=== PATIENT | male | born 1965 ===

== ENCOUNTER 2016-06-26 07:51 | Emergency (ER) | payer OTHER ==
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
--- NOTE | 2016-06-26 09:14 | ED ORDER SUMMARY ---
..... Patient: BILLY MOTT OrderSheet [facility] VisitID: [id number] [address] [place] [address] 50y, M Registration Date/Time: 06/26/2016 ORDER SHEET Weight: 120.2 kg (stated) Allergies: Ibuprofen, Penicillins GENERAL ORDERS: MEDICATION ORDERS: Flexeril PO 10 mg (NOW) (08:54 06/26/2016 [facility]) (9:11 ROLANDOanders R.N.) Prednisone PO 60 mg (NOW) (08:54 06/26/2016 [facility]) (9:11 JSanders R.N.) Zofran ODT PO 4 mg (NOW) (08:54 06/26/2016 [facility]) (9:12 [employer] Technologyanders R.N.) IV FLUIDS: ORDER SHEET NOTES: [Electronically signed by Sujata Alberts R.N. (10:04 06/26/2016)] [Electronically signed by Rashid Landeros DO (22:03 06/27/2016)] [Electronically locked/signed by Sujata Alberts R.N. (10:04 06/26/2016)]
--- NOTE | 2016-06-26 09:14 | ED CLINICAL REPORT ---
Clinical Report - Physicians/Mid Levels [facility] [address] [place] [address] 06/26/2016 7:52 Patient: BILLY MOTT Time Seen: 08:27. Arrived- By private vehicle. Historian- patient. HISTORY OF PRESENT ILLNESS Chief Complaint: BACK PAIN and CHRONIC BACK PAIN. It is described as being moderate in degree and in the area of the lower thoracic spine, left upper lumbar spine and right upper lumbar spine. The quality is noted to be "pain" and similar to prior episodes. No radiation. It is still present. It was gradual in onset and has been waxing/waning. Modifying factors- worsened by rotation of the body, bending over or lifting. Relieved by remaining still. No bladder dysfunction, bowel dysfunction, sensory loss or motor loss. Patient notes the possibility of an injury but denies injury to the head or neck. Mechanism of injury- he was lifting, turning and bending. Occurred at home. No other injury. Similar symptoms previously: Chronically. Recent medical care: The patient was seen recently in a clinic. Seen for similar symptoms. REVIEW OF SYSTEMS No fever, chills, difficulty with urination, urinary frequency or skin rash. No headache, sore throat, difficulty breathing, chest pain or abdominal pain. No nausea, vomiting, diarrhea, black stools or bloody stools. PAST HISTORY See nurses notes. PCP: [facility] ([place]) Problems: Chronic back pain secondary to disk disease Chronic neck pain Infectious Mononucleosis. Meniere's Syndrome. Tinnitus. Lifestyle / Substance Problems. Pancreatitis. Hypokalemia. Substance Abuse. Depression. "Muscular Dystrophy". Anxiety Reaction. Palpitations. Asthma. Migraine Headache. Hypertension. Surgeries: Carpal Tunnel Surgery. Fracture Repair. SOCIAL HISTORY Smoker- current status unknown. History of drug use: marijuana. No alcohol use. ADDITIONAL NOTES The nursing notes have been reviewed. PHYSICAL EXAM Vital Signs: 06/26/2016 08:22 BP: 137/110. HR: 112. RR: 18. O2 saturation: 95%. Temp: 98.2 F. Pain level now: 9/10. Appearance: Alert. Patient in mild distress. HEENT: Normal external inspection. Neck: Normal inspection. Neck nontender. Painless ROM. CVS: Heart sounds normal. Pulses normal. Respiratory: No respiratory distress. Breath sounds normal. Abdomen: No visible injury. Soft and nontender. No mass. Back: Moderate soft tissue tenderness in the right lower and left lower thoracic area and right upper and left upper lumbar area. No soft tissue tenderness in the central thoracic area. Skin: Skin warm and dry. Normal skin color. No rash. Normal skin turgor. Extremities: Extremities exhibit normal ROM. Extremities nontender. Neuro: Oriented X 3. Mood/affect normal. No motor deficit. No sensory deficit. Straight leg raising: negative on the right and negative on the left. Reflexes normal. Reflex exam: right patellar 1+ and left patellar 1+. LABS, X-RAYS, AND EKG Pulse Oximetry: 06/26/2016 08:22 O2 saturation: 95%. (FIO2 - room air). Interpretation: normal. PROGRESS AND PROCEDURES Course of Care: Prednisone 60 mg PO given. Zofran 4 mg ODT PO given. Flexeril 10 mg PO given. Patient is stable. Physical exam findings are improved. Symptoms better. No signs of cord compression. No clinical indication of spinal / epidural infectious process / discitis. There is nothing new or different about his back pain. Patient/family counseled. Old ED records reviewed. Patient has had multiple ED visits (He has had over 3 visits with narcotic management in past 12 mo). Disposition: Discharged. Condition: stable and improved. CLINICAL IMPRESSION Acute traumatic thoracic back pain associated with muscle strain. INSTRUCTIONS Apply ice. (Please see our Pain Care Policy). Warnings: SEDATIVE MEDICATION: You were given sedative medication during your visit. Do not drive or operate dangerous machinery. CONTROLLED SUBSTANCE WARNINGS. GENERAL WARNINGS: Return or contact your physician immediately if your condition worsens or changes unexpectedly, if not improving as expected, or if other problems arise. Your Current Medications: CONTINUE TAKING THE FOLLOWING MEDICATIONS: Gabapentin Oral : 800 mg 3x a day. Tums Oral : prn. Prescription Medications: Robaxin 750 mg: Take 2 orally every 6 hours as needed for muscle spasm. Dispense thirty (30). No refills. Substitution is permissible. OTC Medications: Acetaminophen (available over the counter): take according to label instructions. Follow-up with: [facility], , , [address], , [place], [id number] Follow up tomorrow. (Electronically signed by Rashid Landeros DO 06/27/2016 22:03)
--- NOTE | 2016-06-26 09:14 | ED ORDER SUMMARY ---
..... Patient: BILLY MOTT OrderSheet [facility] VisitID: [id number] [address] [place] [address] 50y, M Registration Date/Time: 06/26/2016 ORDER SHEET Weight: 120.2 kg (stated) Allergies: Ibuprofen, Penicillins GENERAL ORDERS: MEDICATION ORDERS: Flexeril PO 10 mg (NOW) (08:54 06/26/2016 [facility]) (9:11 ROLANDOanders R.N.) Prednisone PO 60 mg (NOW) (08:54 06/26/2016 [facility]) (9:11 JSanders R.N.) Zofran ODT PO 4 mg (NOW) (08:54 06/26/2016 [facility]) (9:12 Buzz Referralsanders R.N.) IV FLUIDS: ORDER SHEET NOTES: [Electronically signed by Sujata Alberts R.N. (10:04 06/26/2016)] [Electronically signed by Rashid Landeros DO (22:03 06/27/2016)] [Electronically locked/signed by Sujata Alberts R.N. (10:04 06/26/2016)]
--- NOTE | 2016-06-26 09:14 | ED CLINICAL REPORT ---
Clinical Report - Physicians/Mid Levels [facility] [address] [place] [place] [address] 06/26/2016 7:52 Patient: BILLY MOTT Time Seen: 08:27. Arrived- By private vehicle. Historian- patient. HISTORY OF PRESENT ILLNESS Chief Complaint: BACK PAIN and CHRONIC BACK PAIN. It is described as being moderate in degree and in the area of the lower thoracic spine, left upper lumbar spine and right upper lumbar spine. The quality is noted to be "pain" and similar to prior episodes. No radiation. It is still present. It was gradual in onset and has been waxing/waning. Modifying factors- worsened by rotation of the body, bending over or lifting. Relieved by remaining still. No bladder dysfunction, bowel dysfunction, sensory loss or motor loss. Patient notes the possibility of an injury but denies injury to the head or neck. Mechanism of injury- he was lifting, turning and bending. Occurred at home. No other injury. Similar symptoms previously: Chronically. Recent medical care: The patient was seen recently in a clinic. Seen for similar symptoms. REVIEW OF SYSTEMS No fever, chills, difficulty with urination, urinary frequency or skin rash. No headache, sore throat, difficulty breathing, chest pain or abdominal pain. No nausea, vomiting, diarrhea, black stools or bloody stools. PAST HISTORY See nurses notes. PCP: [facility] ([place]) Problems: Chronic back pain secondary to disk disease Chronic neck pain Infectious Mononucleosis. Meniere's Syndrome. Tinnitus. Lifestyle / Substance Problems. Pancreatitis. Hypokalemia. Substance Abuse. Depression. "Muscular Dystrophy". Anxiety Reaction. Palpitations. Asthma. Migraine Headache. Hypertension. Surgeries: Carpal Tunnel Surgery. Fracture Repair. SOCIAL HISTORY Smoker- current status unknown. History of drug use: marijuana. No alcohol use. ADDITIONAL NOTES The nursing notes have been reviewed. PHYSICAL EXAM Vital Signs: 06/26/2016 08:22 BP: 137/110. HR: 112. RR: 18. O2 saturation: 95%. Temp: 98.2 F. Pain level now: 9/10. Appearance: Alert. Patient in mild distress. HEENT: Normal external inspection. Neck: Normal inspection. Neck nontender. Painless ROM. CVS: Heart sounds normal. Pulses normal. Respiratory: No respiratory distress. Breath sounds normal. Abdomen: No visible injury. Soft and nontender. No mass. Back: Moderate soft tissue tenderness in the right lower and left lower thoracic area and right upper and left upper lumbar area. No soft tissue tenderness in the central thoracic area. Skin: Skin warm and dry. Normal skin color. No rash. Normal skin turgor. Extremities: Extremities exhibit normal ROM. Extremities nontender. Neuro: Oriented X 3. Mood/affect normal. No motor deficit. No sensory deficit. Straight leg raising: negative on the right and negative on the left. Reflexes normal. Reflex exam: right patellar 1+ and left patellar 1+. LABS, X-RAYS, AND EKG Pulse Oximetry: 06/26/2016 08:22 O2 saturation: 95%. (FIO2 - room air). Interpretation: normal. PROGRESS AND PROCEDURES Course of Care: Prednisone 60 mg PO given. Zofran 4 mg ODT PO given. Flexeril 10 mg PO given. Patient is stable. Physical exam findings are improved. Symptoms better. No signs of cord compression. No clinical indication of spinal / epidural infectious process / discitis. There is nothing new or different about his back pain. Patient/family counseled. Old ED records reviewed. Patient has had multiple ED visits (He has had over 3 visits with narcotic management in past 12 mo). Disposition: Discharged. Condition: stable and improved. CLINICAL IMPRESSION Acute traumatic thoracic back pain associated with muscle strain. INSTRUCTIONS Apply ice. (Please see our Pain Care Policy). Warnings: SEDATIVE MEDICATION: You were given sedative medication during your visit. Do not drive or operate dangerous machinery. CONTROLLED SUBSTANCE WARNINGS. GENERAL WARNINGS: Return or contact your physician immediately if your condition worsens or changes unexpectedly, if not improving as expected, or if other problems arise. Your Current Medications: CONTINUE TAKING THE FOLLOWING MEDICATIONS: Gabapentin Oral : 800 mg 3x a day. Tums Oral : prn. Prescription Medications: Robaxin 750 mg: Take 2 orally every 6 hours as needed for muscle spasm. Dispense thirty (30). No refills. Substitution is permissible. OTC Medications: Acetaminophen (available over the counter): take according to label instructions. Follow-up with: [facility], , , [address], , [place], [id number] Follow up tomorrow. (Electronically signed by Rashid Landeros DO 06/27/2016 22:03)
--- NOTE | 2016-06-27 22:04 | ED MED RECONCILIATION SUMMARY ---
Patient: BILLY MOTT Medication Reconciliation Report [facility] VisitID: [id number] [address] [place] [address] 50y, M Registration Date/Time: 06/26/2016 Weight: 120.2 kg Height/Length: 74 in. BMI: 34.0 ALLERGIES: Ibuprofen, Penicillins The patient's Home Medications are listed below: CONTINUE TAKING THE FOLLOWING MEDICATIONS: Gabapentin Oral 800 mg, 3x a day Tums Oral The source(s) of the original Home Medication information: Not obtained. The following Medications were given to the patient in the Emergency Department: Flexeril [PO] PO 10 mg, administered: 06/26/2016 9:06:00 AM Prednisone [PO] PO 60 mg, administered: 06/26/2016 9:06:00 AM Zofran ODT [PO] PO 4 mg, administered: 06/26/2016 9:07:00 AM The following Medications were prescribed to the patient: Acetaminophen (available over the counter): take according to label instructions. -- Rashid Landeros DO Robaxin 750 mg: Take 2 orally every 6 hours as needed for muscle spasm. Dispense thirty (30). No refills. Substitution is permissible. -- Rashid Landeros DO
--- NOTE | 2016-06-27 22:04 | ED DISCHARGE INSTRUCTIONS ---
Patient: BILLY MOTT General Instructions [facility] VisitID: [id number] [address] [place] [address] 50y, M Registration Date/Time: 06/26/2016 Acute traumatic thoracic back pain associated with muscle strain. INSTRUCTIONS Apply ice. (Please see our Pain Care Policy). Warnings: SEDATIVE MEDICATION: You were given sedative medication during your visit. Do not drive or operate dangerous machinery. CONTROLLED SUBSTANCE WARNINGS. GENERAL WARNINGS: Return or contact your physician immediately if your condition worsens or changes unexpectedly, if not improving as expected, or if other problems arise. Your Current Medications: CONTINUE TAKING THE FOLLOWING MEDICATIONS: Gabapentin Oral : 800 mg 3x a day. Tums Oral : prn. Prescription Medications: Robaxin 750 mg: Take 2 orally every 6 hours as needed for muscle spasm. Dispense thirty (30). No refills. Substitution is permissible. OTC Medications: Acetaminophen (available over the counter): take according to label instructions. Follow-up with: [facility], , , [address], , [place], [address] Follow up tomorrow. ADDITIONAL INFORMATION Back Pain [Acute Or Chronic] Back pain is usually caused by an injury to the muscles or ligaments of the spine. Sometimes the disks that separate each bone in the spine may bulge and cause pain by pressing on a nearby nerve. Back pain may also appear after a sudden twisting/bending force (such as in a car accident), after a simple awkward movement, or lifting something heavy with poor body positioning. In either case, muscle spasm is often present and adds to the pain. Acute back pain usually gets better in one to two weeks. Back pain related to disk disease, arthritis in the spinal joints or spinal stenosis (narrowing of the spinal canal) can become chronic and last for months or years. Unless you had a physical injury (for example, a car accident or fall) X-rays are usually not ordered for the initial evaluation of back pain. If pain continues and does not respond to medical treatment, x-rays and other tests may be performed at a later time. Home Care: You may need to stay in bed the first few days. But, as soon as possible, begin sitting or walking to avoid problems with prolonged bed rest (muscle weakness, worsening back stiffness and pain, blood clots in the legs). When in bed, try to find a position of comfort. A firm mattress is best. Try lying flat on your back with pillows under your knees. You can also try lying on your side with your knees bent up towards your chest and a pillow between your knees. Avoid prolonged sitting. This puts more stress on the lower back than standing or walking. During the first two days after injury, apply an ICE PACK to the painful area for 20 minutes every 2-4 hours. This will reduce swelling and pain. HEAT (hot shower, hot bath or heating pad) works well for muscle spasm. You can start with ice, then switch to heat after two days. Some patients feel best alternating ice and heat treatments. Use the one method that feels the best to you. You may use acetaminophen (Tylenol) or ibuprofen (Motrin, Advil) to control pain, unless another pain medicine was prescribed. [NOTE: If you have chronic liver or kidney disease or ever had a stomach ulcer or GI bleeding, talk with your doctor before using these medicines.] Be aware of safe lifting methods and do not lift anything over 15 pounds until all the pain is gone. Follow Up with your doctor or this facility if your symptoms do not start to improve after one week. Physical therapy may be needed. [NOTE: If X-rays were taken, they will be reviewed by a radiologist. You will be notified of any new findings that may affect your care.] Get Prompt Medical Attention if any of the following occur: Pain becomes worse or spreads to your legs Weakness or numbness in one or both legs Loss of bowel or bladder control Numbness in the groin or genital area Methocarbamol Oral tablet What is this medicine? METHOCARBAMOL (meth oh KARIME ba mole) helps to relieve pain and stiffness in muscles caused by strains, sprains, or other injury to your muscles. How should I use this medicine? Take this medicine by mouth with a full glass of water. Follow the directions on the prescription label. Take your medicine at regular intervals. Do not take your medicine more often than directed. Talk to your brine tank operator regarding the use of this medicine in children. Special care may be needed. What side effects may I notice from receiving this medicine? Side effects that you should report to your doctor or health outdoor emergency care technician as soon as possible: allergic reactions like skin rash, itching or hives, swelling of the face, lips, or tongue blurred vision or changes in vision confusion fainting spells fever nausea or vomiting seizures Side effects that usually do not require medical attention (report to your doctor or health outdoor emergency care technician if they continue or are bothersome): dizziness drowsiness headache metallic taste What may interact with this medicine? alcohol or medicines that contain alcohol cholinesterase inhibitors like neostigmine, ambenonium, and pyridostigmine bromide other medicines that cause drowsiness What if I miss a dose? If you miss a dose, take it as soon as you can. If it is almost time for your next dose, take only the next dose. Do not take double or extra doses. Where should I keep my medicine? Keep out of the reach of children. Store at room temperature between 20 and 25 degrees C (68 and 77 degrees F). Keep container tightly closed. Throw away any unused medicine after the expiration date. What should I tell my health care provider before I take this medicine? They need to know if you have any of these conditions: kidney disease seizures an unusual or allergic reaction to methocarbamol, other medicines, foods, dyes, or preservatives or trying to get breast-feeding What should I watch for while using this medicine? You may get drowsy or dizzy. Do not drive, use machinery, or do anything that needs mental alertness until you know how this medicine affects you. Do not stand or sit up quickly, especially if you are an older patient. This reduces the risk of dizzy or fainting spells. Alcohol may interfere with the effect of this medicine. Avoid alcoholic drinks. Acetaminophen Oral tablet What is this medicine? ACETAMINOPHEN (a set a MELVIN ty fen) is a pain reliever. It is used to treat mild pain and fever. How should I use this medicine? Take this medicine by mouth with a glass of water. Follow the directions on the package or prescription label. Take your medicine at regular intervals. Do not take your medicine more often than directed. Talk to your brine tank operator regarding the use of this medicine in children. While this drug may be prescribed for children as young as 6 years of age for selected conditions, precautions do apply. What side effects may I notice from receiving this medicine? Side effects that you should report to your doctor or health outdoor emergency care technician as soon as possible: allergic reactions like skin rash, itching or hives, swelling of the face, lips, or tongue breathing problems fever or sore throat redness, blistering, peeling or loosening of the skin, including inside the mouth trouble passing urine or change in the amount of urine unusual bleeding or bruising unusually weak or tired yellowing of the eyes or skin Side effects that usually do not require medical attention (report to your doctor or health outdoor emergency care technician if they continue or are bothersome): headache nausea, stomach upset What may interact with this medicine? alcohol imatinib isoniazid other medicines with acetaminophen What if I miss a dose? If you miss a dose, take it as soon as you can. If it is almost time for your next dose, take only that dose. Do not take double or extra doses. Where should I keep my medicine? Keep out of reach of children. Store at room temperature between 20 and 25 degrees C (68 and 77 degrees F). Protect from moisture and heat. Throw away any unused medicine after the expiration date. What should I tell my health care provider before I take this medicine? They need to know if you have any of these conditions: if you frequently drink alcohol containing drinks liver disease an unusual or allergic reaction to acetaminophen, other medicines, foods, dyes or preservatives or trying to get breast-feeding What should I watch for while using this medicine? Tell your doctor or health outdoor emergency care technician if the pain lasts more than 10 days (5 days for children), if it gets worse, or if there is a new or different kind of pain. Also, check with your doctor if a fever lasts for more than 3 days. Do not take other medicines that contain acetaminophen with this medicine. Always read labels carefully. If you have questions, ask your doctor or pharmacist. If you take too much acetaminophen get medical help right away. Too much acetaminophen can be very dangerous and cause liver damage. Even if you do not have symptoms, it is important to get help right away. You have been given the following additional information: Back Pain (Acute Or Chronic) Methocarbamol Oral tablet Acetaminophen Oral tablet (Electronically signed by Rashid Landeros DO 06/27/2016 22:03)
--- NOTE | 2016-06-27 22:04 | ED MED RECONCILIATION SUMMARY ---
Patient: BILLY MOTT Medication Reconciliation Report [facility] VisitID: [id number] [address] [place] [place] [address] 50y, M Registration Date/Time: 06/26/2016 Weight: 120.2 kg Height/Length: 74 in. BMI: 34.0 ALLERGIES: Ibuprofen, Penicillins The patient's Home Medications are listed below: CONTINUE TAKING THE FOLLOWING MEDICATIONS: Gabapentin Oral 800 mg, 3x a day Tums Oral The source(s) of the original Home Medication information: Not obtained. The following Medications were given to the patient in the Emergency Department: Flexeril [PO] PO 10 mg, administered: 06/26/2016 9:06:00 AM Prednisone [PO] PO 60 mg, administered: 06/26/2016 9:06:00 AM Zofran ODT [PO] PO 4 mg, administered: 06/26/2016 9:07:00 AM The following Medications were prescribed to the patient: Acetaminophen (available over the counter): take according to label instructions. -- Rashid Landeros DO Robaxin 750 mg: Take 2 orally every 6 hours as needed for muscle spasm. Dispense thirty (30). No refills. Substitution is permissible. -- Rashid Landeros DO
--- NOTE | 2016-06-27 22:04 | ED DISCHARGE INSTRUCTIONS ---
Patient: BILLY MOTT General Instructions [facility] VisitID: [id number] [address] [place] [address] 50y, M Registration Date/Time: 06/26/2016 Acute traumatic thoracic back pain associated with muscle strain. INSTRUCTIONS Apply ice. (Please see our Pain Care Policy). Warnings: SEDATIVE MEDICATION: You were given sedative medication during your visit. Do not drive or operate dangerous machinery. CONTROLLED SUBSTANCE WARNINGS. GENERAL WARNINGS: Return or contact your physician immediately if your condition worsens or changes unexpectedly, if not improving as expected, or if other problems arise. Your Current Medications: CONTINUE TAKING THE FOLLOWING MEDICATIONS: Gabapentin Oral : 800 mg 3x a day. Tums Oral : prn. Prescription Medications: Robaxin 750 mg: Take 2 orally every 6 hours as needed for muscle spasm. Dispense thirty (30). No refills. Substitution is permissible. OTC Medications: Acetaminophen (available over the counter): take according to label instructions. Follow-up with: [facility], , , [address], , [place], [id number] Follow up tomorrow. ADDITIONAL INFORMATION Back Pain [Acute Or Chronic] Back pain is usually caused by an injury to the muscles or ligaments of the spine. Sometimes the disks that separate each bone in the spine may bulge and cause pain by pressing on a nearby nerve. Back pain may also appear after a sudden twisting/bending force (such as in a car accident), after a simple awkward movement, or lifting something heavy with poor body positioning. In either case, muscle spasm is often present and adds to the pain. Acute back pain usually gets better in one to two weeks. Back pain related to disk disease, arthritis in the spinal joints or spinal stenosis (narrowing of the spinal canal) can become chronic and last for months or years. Unless you had a physical injury (for example, a car accident or fall) X-rays are usually not ordered for the initial evaluation of back pain. If pain continues and does not respond to medical treatment, x-rays and other tests may be performed at a later time. Home Care: You may need to stay in bed the first few days. But, as soon as possible, begin sitting or walking to avoid problems with prolonged bed rest (muscle weakness, worsening back stiffness and pain, blood clots in the legs). When in bed, try to find a position of comfort. A firm mattress is best. Try lying flat on your back with pillows under your knees. You can also try lying on your side with your knees bent up towards your chest and a pillow between your knees. Avoid prolonged sitting. This puts more stress on the lower back than standing or walking. During the first two days after injury, apply an ICE PACK to the painful area for 20 minutes every 2-4 hours. This will reduce swelling and pain. HEAT (hot shower, hot bath or heating pad) works well for muscle spasm. You can start with ice, then switch to heat after two days. Some patients feel best alternating ice and heat treatments. Use the one method that feels the best to you. You may use acetaminophen (Tylenol) or ibuprofen (Motrin, Advil) to control pain, unless another pain medicine was prescribed. [NOTE: If you have chronic liver or kidney disease or ever had a stomach ulcer or GI bleeding, talk with your doctor before using these medicines.] Be aware of safe lifting methods and do not lift anything over 15 pounds until all the pain is gone. Follow Up with your doctor or this facility if your symptoms do not start to improve after one week. Physical therapy may be needed. [NOTE: If X-rays were taken, they will be reviewed by a radiologist. You will be notified of any new findings that may affect your care.] Get Prompt Medical Attention if any of the following occur: Pain becomes worse or spreads to your legs Weakness or numbness in one or both legs Loss of bowel or bladder control Numbness in the groin or genital area Methocarbamol Oral tablet What is this medicine? METHOCARBAMOL (meth oh KARIME ba mole) helps to relieve pain and stiffness in muscles caused by strains, sprains, or other injury to your muscles. How should I use this medicine? Take this medicine by mouth with a full glass of water. Follow the directions on the prescription label. Take your medicine at regular intervals. Do not take your medicine more often than directed. Talk to your glass bender regarding the use of this medicine in children. Special care may be needed. What side effects may I notice from receiving this medicine? Side effects that you should report to your doctor or health resident care provider as soon as possible: allergic reactions like skin rash, itching or hives, swelling of the face, lips, or tongue blurred vision or changes in vision confusion fainting spells fever nausea or vomiting seizures Side effects that usually do not require medical attention (report to your doctor or health resident care provider if they continue or are bothersome): dizziness drowsiness headache metallic taste What may interact with this medicine? alcohol or medicines that contain alcohol cholinesterase inhibitors like neostigmine, ambenonium, and pyridostigmine bromide other medicines that cause drowsiness What if I miss a dose? If you miss a dose, take it as soon as you can. If it is almost time for your next dose, take only the next dose. Do not take double or extra doses. Where should I keep my medicine? Keep out of the reach of children. Store at room temperature between 20 and 25 degrees C (68 and 77 degrees F). Keep container tightly closed. Throw away any unused medicine after the expiration date. What should I tell my health care provider before I take this medicine? They need to know if you have any of these conditions: kidney disease seizures an unusual or allergic reaction to methocarbamol, other medicines, foods, dyes, or preservatives or trying to get breast-feeding What should I watch for while using this medicine? You may get drowsy or dizzy. Do not drive, use machinery, or do anything that needs mental alertness until you know how this medicine affects you. Do not stand or sit up quickly, especially if you are an older patient. This reduces the risk of dizzy or fainting spells. Alcohol may interfere with the effect of this medicine. Avoid alcoholic drinks. Acetaminophen Oral tablet What is this medicine? ACETAMINOPHEN (a set a MELVIN ty fen) is a pain reliever. It is used to treat mild pain and fever. How should I use this medicine? Take this medicine by mouth with a glass of water. Follow the directions on the package or prescription label. Take your medicine at regular intervals. Do not take your medicine more often than directed. Talk to your glass bender regarding the use of this medicine in children. While this drug may be prescribed for children as young as 6 years of age for selected conditions, precautions do apply. What side effects may I notice from receiving this medicine? Side effects that you should report to your doctor or health resident care provider as soon as possible: allergic reactions like skin rash, itching or hives, swelling of the face, lips, or tongue breathing problems fever or sore throat redness, blistering, peeling or loosening of the skin, including inside the mouth trouble passing urine or change in the amount of urine unusual bleeding or bruising unusually weak or tired yellowing of the eyes or skin Side effects that usually do not require medical attention (report to your doctor or health resident care provider if they continue or are bothersome): headache nausea, stomach upset What may interact with this medicine? alcohol imatinib isoniazid other medicines with acetaminophen What if I miss a dose? If you miss a dose, take it as soon as you can. If it is almost time for your next dose, take only that dose. Do not take double or extra doses. Where should I keep my medicine? Keep out of reach of children. Store at room temperature between 20 and 25 degrees C (68 and 77 degrees F). Protect from moisture and heat. Throw away any unused medicine after the expiration date. What should I tell my health care provider before I take this medicine? They need to know if you have any of these conditions: if you frequently drink alcohol containing drinks liver disease an unusual or allergic reaction to acetaminophen, other medicines, foods, dyes or preservatives or trying to get breast-feeding What should I watch for while using this medicine? Tell your doctor or health resident care provider if the pain lasts more than 10 days (5 days for children), if it gets worse, or if there is a new or different kind of pain. Also, check with your doctor if a fever lasts for more than 3 days. Do not take other medicines that contain acetaminophen with this medicine. Always read labels carefully. If you have questions, ask your doctor or pharmacist. If you take too much acetaminophen get medical help right away. Too much acetaminophen can be very dangerous and cause liver damage. Even if you do not have symptoms, it is important to get help right away. You have been given the following additional information: Back Pain (Acute Or Chronic) Methocarbamol Oral tablet Acetaminophen Oral tablet (Electronically signed by Rashid Landeros DO 06/27/2016 22:03)
--- NOTE | 2016-06-27 22:04 | ED MAR SUMMARY ---
..... Medication Administration Record [facility] [address] [place] [address] Patient: BILLY MOTT Visit ID: [id number] 50y, M Weight: 120.2 kg Height/Length: 74 in BMI: 34 ALLERGIES: Ibuprofen, Penicillins Given 09:06/26/2016 Sujata Alberts R.N. Medication Administered: FLEXERIL [PO] (CYCLOBENZAPRINE HCL), Dose: 10 mg Tablets PO. Medication Ordered: Flexeril PO 10 mg (NOW). Given 09:06/26/2016 Sujata Alberts R.N. Medication Administered: PREDNISONE [PO], Dose: 60 mg Tablets PO. Medication Ordered: Prednisone PO 60 mg (NOW). Given 09:06/26/2016 Sujata Alberts R.N. Medication Administered: ZOFRAN ODT [PO] (ONDANSETRON), Dose: 4 mg Tablets PO. Medication Ordered: Zofran ODT PO 4 mg (NOW).
--- NOTE | 2016-06-27 22:04 | ED MAR SUMMARY ---
..... Medication Administration Record [facility] [address] [place] [address] Patient: BILLY MOTT Visit ID: [id number] 50y, M Weight: 120.2 kg Height/Length: 74 in BMI: 34 ALLERGIES: Ibuprofen, Penicillins Given 09:06/26/2016 Sujata Alberts R.N. Medication Administered: FLEXERIL [PO] (CYCLOBENZAPRINE HCL), Dose: 10 mg Tablets PO. Medication Ordered: Flexeril PO 10 mg (NOW). Given 09:06/26/2016 Sujata Alberts R.N. Medication Administered: PREDNISONE [PO], Dose: 60 mg Tablets PO. Medication Ordered: Prednisone PO 60 mg (NOW). Given 09:06/26/2016 Sujata Alberts R.N. Medication Administered: ZOFRAN ODT [PO] (ONDANSETRON), Dose: 4 mg Tablets PO. Medication Ordered: Zofran ODT PO 4 mg (NOW).
== END 2016-06-26 09:50 | disposition home or self-care (01) ==
LOC: ED SRH 07:51
DX: S29.012A Strain of muscle and tendon of back wall of thorax, initial encounter (principal); X50.0XXA Overexertion from strenuous movement or load, initial encounter; Y93.89 Activity, other specified; Y92.009 Unspecified place in unspecified non-institutional (private) residence as the place of occurrence of the external cause; Y99.9 Unspecified external cause status; I10 Essential (primary) hypertension

== ENCOUNTER 2016-08-20 15:17 | Emergency (ER) | payer OTHER ==
--- NOTE | 2016-08-20 15:40 | ED NURSING NOTES ---
Clinical Report - Nurses [address] [place] [address] 08/20/2016 15:18 Patient: BILLY MOTT TRIAGE Triage time 15:20 Aug 20 2016. Acuity: LEVEL 3. Chief Complaint: NECK PAIN and BACK PAIN. Alert. JOHANNY COMA SCORE: Johanny Coma Scale: 15- eyes open spontaneously (4); best verbal response- oriented x 4 (5); best motor response- obeys commands (6). --15:40 Anmol Potter R.N. 15:25 08/20/16. BP: 140/102. HR: 112. RR: 16. O2 saturation: 97% on room air. Temp: 99.1 F. Pain level now: 01/15. --15:40 Anmol Potter R.N. Weight: 113.3 kg stated. Height/Length: 74 inches Per Patient. BMI: 32.1. --15:38 Anmol Potter R.N. Medications Gabapentin Oral 800 mg, 3x a day. Tums Oral, as needed. --15:33 Anmol Potter R.N. Medication/allergy information source: the patient. --15:40 Anmol Potter R.N. Allergies Ibuprofen. Definite Severe(angioedema, nausea) Penicillins. Definite Moderate(SOB, swelling) --15:33 Anmol Potter R.N. History Arrived by private vehicle. Historian: patient. Accompanied by father. Primary physician (none). ( Neck and Mid-back pain. Pt states that it started about 2 weeks ago. He also states that he hasn't slept well and that always irritate his back.). Onset. (about 2 weeks ago). No history of recent trauma. 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 Symptoms did not improve after treatment. (last dose 2-3 hours ago). PAST MEDICAL HX: Tetanus status: up-to-date. Immunizations: up-to-date. SOCIAL HX: Alcohol use. Patient is a recovering alcoholic. (last drink, "a few years ago."). History of drug use: marijuana. No infectious disease exposure. ABUSE ASSESSMENT: No report of abuse. FALL RISK ASSESSMENT: Fall risk assessment completed. No fall risk identified. NUTRITIONAL RISK ASSESSMENT: The nutritional risk assessment revealed no deficiencies. FUNCTIONAL ASSESSMENT: Functional assessment: no impairments noted. LEARNING NEEDS ASSESSMENT: The learning needs assessment revealed no barriers. SKIN INTEGRITY ASSESSMENT: Skin integrity risk assessment completed. No skin integrity risk identified. --15:40 Anmol Potter R.N. PROBLEMS: COPD - Chronic Obstructive Pulmonary Disease. Chronic Back Pain. Neck Pain. Heart Disease. Back Injury. Chest Pain of GI Origin. Infectious Mononucleosis. Strep Throat. Sinus Problems. Meniere's Syndrome. Headache. Acute Otalgia. Tinnitus. Back Pain. Lifestyle / Substance Problems. Lung Disease. Bronchitis. Pancreatitis. Abdominal Pain. Vomiting. Hypokalemia. Atypical Chest Pain. Dehydration. Myalgias. Substance Abuse. Depression. Mental Illness. Immunizations. Muscular Dystrophy. Anxiety Reaction. Dental Pain. Abscess. Dental Caries. URI. Drug Poisoning. Otitis Media. Palpitations. Asthma. Migraine Headache. Hypertension. --15:37 Anmol Potter R.N. ADDITIONAL SURGERIES: Carpal Tunnel Surgery. Fracture Repair. --15:34 Anmol Potter R.N. Tonsillectomy. --15:37 Anmol Potter R.N. Interventions ID band on patient. To treatment room. --15:40 Anmol Potter R.N. PHYSICAL ASSESSMENT Ambulatory to room. GENERAL / NEURO / PSYCH: Alert. Oriented X 4. RESPIRATORY: Respirations not labored. CVS: Cardiac rhythm: sinus tachycardia. Capillary refill less than 2 seconds. GI / : Abdomen soft. Bowel sounds within normal limits. EXTREMITIES: Sensation intact in extremities. ROM of extremities within normal limits. BACK: Vertebral point tenderness over the thoracic spine. --15:40 Anmlo Potter R.N. NURSING PROGRESS NOTES Reassurance given. Patient identifiers checked. Call light placed in reach. Side rails up x 1. Bed placed in lowest position. Brakes of bed on. Patient ready for evaluation- chart flagged and ED physician notified. --15:41 Anmol Potter R.N. DISPOSITION / DISCHARGE Departure time: 1545. --19:08 Anmol Potter R.N. 15:45. No learning barriers present. Discharge instructions provided and reviewed with the patient. Reviewed medication(s) dosing information (prescription given to pt). Reviewed referrals. Patient verbalized understanding. Written instructions provided in Latvian. The patient was discharged by the physician. He was discharged home and accompanied by parent. He left the Emergency Department ambulatory and via private vehicle. Parent driving. --19:11 Anmol Potter R.N. Locked/Released at 08/20/2016 19:14 by Anmol Potter R.N.
--- NOTE | 2016-08-20 15:40 | ED CLINICAL REPORT ---
Clinical Report - Physicians/Mid Levels [facility] [address] [place] [address] 08/20/2016 15:18 Patient: BILLY MOTT Time Seen: 15:24. Arrived- By private vehicle. Historian- patient. HISTORY OF PRESENT ILLNESS Chief Complaint: BACK PAIN and CHRONIC BACK PAIN. It is described as being moderate in degree and in the area of the lower thoracic spine, left upper lumbar spine and left lower lumbar spine. The quality is noted to be "pain" and similar to prior episodes. No radiation. Onset- this is an ongoing, chronic problem, exacerbated about 2 weeks ago and it is still present. It was gradual in onset and has been waxing/waning. Modifying factors- worsened by walking, bending over or lifting. Relieved by remaining still. No bladder dysfunction, bowel dysfunction, sensory loss or motor loss. Patient notes the possibility of an injury but denies injury to the head or neck. Mechanism of injury- he was lifting, turning and bending. Occurred at home. No other injury. ( Also notes occasional, chronic neck pain. He has been referred to a pain specialist, but has not yet seen the specialist. He has a pcp at [facility] in [place]). Similar symptoms previously: Recent medical care: The patient was seen recently at this facility in the emergency department. Seen for similar symptoms. REVIEW OF SYSTEMS No fever, chills, difficulty with urination, urinary frequency or hematuria. No skin rash, headache, sore throat, cough or difficulty breathing. No chest pain, abdominal pain, nausea, vomiting or diarrhea. No black stools or bloody stools. All systems otherwise negative, except as recorded above. PAST HISTORY See nurses notes. PCP: [facility] ([place]) Problems: Chronic back pain secondary to disk disease Chronic neck pain Infectious Mononucleosis. Meniere's Syndrome. Tinnitus. Lifestyle / Substance Problems. Pancreatitis. Hypokalemia. Substance Abuse. Depression. "Muscular Dystrophy". Anxiety Reaction. Palpitations. Asthma. Migraine Headache. Hypertension. Surgeries: Carpal Tunnel Surgery. Fracture Repai. No history of aortic aneurysm. No history of coronary artery disease. Has not had urinary calculi. SOCIAL HISTORY Alcohol use. Last drink was 3 years ago. Patient is a recovering alcoholic. History of drug use: marijuana. ADDITIONAL NOTES The nursing notes have been reviewed. PHYSICAL EXAM Vital Signs: 08/20/2016 15:25 BP: 140/102. HR: 112. RR: 16. O2 saturation: 97%. Temp: 99.1 F. Pain level now: 9/10. Appearance: Alert. No acute distress. HEENT: Normal external inspection. Eyes: Pupils equal, round and reactive to light. ENT: Pharynx normal. Neck: Normal inspection. Neck nontender. Painless ROM. CVS: Tachycardia. Heart sounds normal. No decreased pulses. Respiratory: No respiratory distress. Breath sounds normal. Abdomen: No visible injury. Soft and nontender. No mass. Back: Normal inspection. Moderate soft tissue tenderness in the left lower thoracic area and left upper, mid and lower lumbar area. No vertebral point tenderness or CVA tenderness. Skin: Skin warm and dry. Normal skin color. No rash. Normal skin turgor. Extremities: Extremities exhibit normal ROM. Extremities nontender. No calf tenderness. Neuro: Oriented X 3. Mood/affect normal. No motor deficit. No sensory deficit. Straight leg raising: negative on the right and negative on the left. Reflexes normal. PROGRESS AND PROCEDURES Course of Care: There is nothing new or different about his pain today. He gas been referred to a pain specialist, but has not been able to obtain an appointment. He has a PCP who is following him for this back pain. He may need an MRI if not improving. No IDU or any reason to suspect spinal / epidural infectious process / discitis. Many prior visits for similar back pain. He usually has some mild tachycardia and hypertension on his ED visits (likely due to pain). No indication for emergent imaging or other lab / work up. No irritative voiding symptoms or signs of stone or AAA. Patient/family counseled regarding the patient's diagnosis and need for additional testing and follow-up. Old ED records reviewed. Patient has had multiple ED visits (He has had over 3 visits with narcotic management in past 12 mo). CLINICAL IMPRESSION Chronic nontraumatic thoracic and lumbar back pain associated with muscle strain. Essential hypertension. INSTRUCTIONS Apply ice. (Please see the PAIN CARE PLAN - we cannot use narcotic pain medication in the ER for chronic pain or more than 3 times in 12 months - PLEASE SEE THE PAIN SPECIALIST YOUR DOCTOR HAS REFERRED YOU TO). Warnings: SEDATIVE MEDICATION: You were given sedative medication during your visit. Do not drive or operate dangerous machinery. GENERAL WARNINGS: Return or contact your physician immediately if your condition worsens or changes unexpectedly, if not improving as expected, or if other problems arise. Your Current Medications: CONTINUE TAKING THE FOLLOWING MEDICATIONS: Gabapentin Oral : 800 mg 3x a day. Tums Oral : prn. Prescription Medications: Flexeril 10 mg: Take 1 orally every 8 hours as needed for muscle spasm. Dispense twenty (20). No refills. Substitution is permissible. OTC Medications: Acetaminophen (available over the counter): take according to label instructions. Follow-up: Screening today revealed the patient's blood pressure to be in the hypertensive range. The patient should follow up with a primary care provider for blood pressure management. Follow-up with: [facility], , , [facility] [address], [place] [address]; [facility], , , [address] [place] [address], ; [facility], [facility], , [address] [place] [address] Follow up in about two days. (Electronically signed by Rashid Landeros DO 08/20/2016 22:54)
--- NOTE | 2016-08-20 15:40 | ED NURSING NOTES ---
Clinical Report - Nurses [facility] [address] [place] [address] 08/20/2016 15:18 Patient: BILLY MOTT TRIAGE Triage time 15:20 Aug 20 2016. Acuity: LEVEL 3. Chief Complaint: NECK PAIN and BACK PAIN. Alert. JOHANNY COMA SCORE: Johanny Coma Scale: 15- eyes open spontaneously (4); best verbal response- oriented x 4 (5); best motor response- obeys commands (6). --15:40 Anmol Potter R.N. 15:25 08/20/16. BP: 140/102. HR: 112. RR: 16. O2 saturation: 97% on room air. Temp: 99.1 F. Pain level now: 01/15. --15:40 Anmol Potter R.N. Weight: 113.3 kg stated. Height/Length: 74 inches Per Patient. BMI: 32.1. --15:38 Anmol Potter R.N. Medications Gabapentin Oral 800 mg, 3x a day. Tums Oral, as needed. --15:33 Anmol Potter R.N. Medication/allergy information source: the patient. --15:40 Anmol Potter R.N. Allergies Ibuprofen. Definite Severe(angioedema, nausea) Penicillins. Definite Moderate(SOB, swelling) --15:33 Anmol Potter R.N. History Arrived by private vehicle. Historian: patient. Accompanied by father. Primary physician (none). ( Neck and Mid-back pain. Pt states that it started about 2 weeks ago. He also states that he hasn't slept well and that always irritate his back.). Onset. (about 2 weeks ago). No history of recent trauma. 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 Symptoms did not improve after treatment. (last dose 2-3 hours ago). PAST MEDICAL HX: Tetanus status: up-to-date. Immunizations: up-to-date. SOCIAL HX: Alcohol use. Patient is a recovering alcoholic. (last drink, "a few years ago."). History of drug use: marijuana. No infectious disease exposure. ABUSE ASSESSMENT: No report of abuse. FALL RISK ASSESSMENT: Fall risk assessment completed. No fall risk identified. NUTRITIONAL RISK ASSESSMENT: The nutritional risk assessment revealed no deficiencies. FUNCTIONAL ASSESSMENT: Functional assessment: no impairments noted. LEARNING NEEDS ASSESSMENT: The learning needs assessment revealed no barriers. SKIN INTEGRITY ASSESSMENT: Skin integrity risk assessment completed. No skin integrity risk identified. --15:40 Anmol Potter R.N. PROBLEMS: COPD - Chronic Obstructive Pulmonary Disease. Chronic Back Pain. Neck Pain. Heart Disease. Back Injury. Chest Pain of GI Origin. Infectious Mononucleosis. Strep Throat. Sinus Problems. Meniere's Syndrome. Headache. Acute Otalgia. Tinnitus. Back Pain. Lifestyle / Substance Problems. Lung Disease. Bronchitis. Pancreatitis. Abdominal Pain. Vomiting. Hypokalemia. Atypical Chest Pain. Dehydration. Myalgias. Substance Abuse. Depression. Mental Illness. Immunizations. Muscular Dystrophy. Anxiety Reaction. Dental Pain. Abscess. Dental Caries. URI. Drug Poisoning. Otitis Media. Palpitations. Asthma. Migraine Headache. Hypertension. --15:37 Anmol Potter R.N. ADDITIONAL SURGERIES: Carpal Tunnel Surgery. Fracture Repair. --15:34 Anmol Potter R.N. Tonsillectomy. --15:37 Anmol Potter R.N. Interventions ID band on patient. To treatment room. --15:40 Anmol Potter R.N. PHYSICAL ASSESSMENT Ambulatory to room. GENERAL / NEURO / PSYCH: Alert. Oriented X 4. RESPIRATORY: Respirations not labored. CVS: Cardiac rhythm: sinus tachycardia. Capillary refill less than 2 seconds. GI / : Abdomen soft. Bowel sounds within normal limits. EXTREMITIES: Sensation intact in extremities. ROM of extremities within normal limits. BACK: Vertebral point tenderness over the thoracic spine. --15:40 Anmol Potter R.N. NURSING PROGRESS NOTES Reassurance given. Patient identifiers checked. Call light placed in reach. Side rails up x 1. Bed placed in lowest position. Brakes of bed on. Patient ready for evaluation- chart flagged and ED physician notified. --15:41 Anmol Potter R.N. DISPOSITION / DISCHARGE Departure time: 1545. --19:08 Anmol Potter R.N. 15:45. No learning barriers present. Discharge instructions provided and reviewed with the patient. Reviewed medication(s) dosing information (prescription given to pt). Reviewed referrals. Patient verbalized understanding. Written instructions provided in Mongolian. The patient was discharged by the physician. He was discharged home and accompanied by parent. He left the Emergency Department ambulatory and via private vehicle. Parent driving. --19:11 Anmol Potter R.N. Locked/Released at 08/20/2016 19:14 by Anmol Potter R.N.
--- NOTE | 2016-08-20 15:40 | ED CLINICAL REPORT ---
Clinical Report - Physicians/Mid Levels [facility] [address] [place] [address] 08/20/2016 15:18 Patient: BILLY OMTT Time Seen: 15:24. Arrived- By private vehicle. Historian- patient. HISTORY OF PRESENT ILLNESS Chief Complaint: BACK PAIN and CHRONIC BACK PAIN. It is described as being moderate in degree and in the area of the lower thoracic spine, left upper lumbar spine and left lower lumbar spine. The quality is noted to be "pain" and similar to prior episodes. No radiation. Onset- this is an ongoing, chronic problem, exacerbated about 2 weeks ago and it is still present. It was gradual in onset and has been waxing/waning. Modifying factors- worsened by walking, bending over or lifting. Relieved by remaining still. No bladder dysfunction, bowel dysfunction, sensory loss or motor loss. Patient notes the possibility of an injury but denies injury to the head or neck. Mechanism of injury- he was lifting, turning and bending. Occurred at home. No other injury. ( Also notes occasional, chronic neck pain. He has been referred to a pain specialist, but has not yet seen the specialist. He has a pcp at [facility] in [place]). Similar symptoms previously: Recent medical care: The patient was seen recently at this facility in the emergency department. Seen for similar symptoms. REVIEW OF SYSTEMS No fever, chills, difficulty with urination, urinary frequency or hematuria. No skin rash, headache, sore throat, cough or difficulty breathing. No chest pain, abdominal pain, nausea, vomiting or diarrhea. No black stools or bloody stools. All systems otherwise negative, except as recorded above. PAST HISTORY See nurses notes. PCP: [facility] ([place]) Problems: Chronic back pain secondary to disk disease Chronic neck pain Infectious Mononucleosis. Meniere's Syndrome. Tinnitus. Lifestyle / Substance Problems. Pancreatitis. Hypokalemia. Substance Abuse. Depression. "Muscular Dystrophy". Anxiety Reaction. Palpitations. Asthma. Migraine Headache. Hypertension. Surgeries: Carpal Tunnel Surgery. Fracture Repai. No history of aortic aneurysm. No history of coronary artery disease. Has not had urinary calculi. SOCIAL HISTORY Alcohol use. Last drink was 3 years ago. Patient is a recovering alcoholic. History of drug use: marijuana. ADDITIONAL NOTES The nursing notes have been reviewed. PHYSICAL EXAM Vital Signs: 08/20/2016 15:25 BP: 140/102. HR: 112. RR: 16. O2 saturation: 97%. Temp: 99.1 F. Pain level now: 9/10. Appearance: Alert. No acute distress. HEENT: Normal external inspection. Eyes: Pupils equal, round and reactive to light. ENT: Pharynx normal. Neck: Normal inspection. Neck nontender. Painless ROM. CVS: Tachycardia. Heart sounds normal. No decreased pulses. Respiratory: No respiratory distress. Breath sounds normal. Abdomen: No visible injury. Soft and nontender. No mass. Back: Normal inspection. Moderate soft tissue tenderness in the left lower thoracic area and left upper, mid and lower lumbar area. No vertebral point tenderness or CVA tenderness. Skin: Skin warm and dry. Normal skin color. No rash. Normal skin turgor. Extremities: Extremities exhibit normal ROM. Extremities nontender. No calf tenderness. Neuro: Oriented X 3. Mood/affect normal. No motor deficit. No sensory deficit. Straight leg raising: negative on the right and negative on the left. Reflexes normal. PROGRESS AND PROCEDURES Course of Care: There is nothing new or different about his pain today. He gas been referred to a pain specialist, but has not been able to obtain an appointment. He has a PCP who is following him for this back pain. He may need an MRI if not improving. No IDU or any reason to suspect spinal / epidural infectious process / discitis. Many prior visits for similar back pain. He usually has some mild tachycardia and hypertension on his ED visits (likely due to pain). No indication for emergent imaging or other lab / work up. No irritative voiding symptoms or signs of stone or AAA. Patient/family counseled regarding the patient's diagnosis and need for additional testing and follow-up. Old ED records reviewed. Patient has had multiple ED visits (He has had over 3 visits with narcotic management in past 12 mo). CLINICAL IMPRESSION Chronic nontraumatic thoracic and lumbar back pain associated with muscle strain. Essential hypertension. INSTRUCTIONS Apply ice. (Please see the PAIN CARE PLAN - we cannot use narcotic pain medication in the ER for chronic pain or more than 3 times in 12 months - PLEASE SEE THE PAIN SPECIALIST YOUR DOCTOR HAS REFERRED YOU TO). Warnings: SEDATIVE MEDICATION: You were given sedative medication during your visit. Do not drive or operate dangerous machinery. GENERAL WARNINGS: Return or contact your physician immediately if your condition worsens or changes unexpectedly, if not improving as expected, or if other problems arise. Your Current Medications: CONTINUE TAKING THE FOLLOWING MEDICATIONS: Gabapentin Oral : 800 mg 3x a day. Tums Oral : prn. Prescription Medications: Flexeril 10 mg: Take 1 orally every 8 hours as needed for muscle spasm. Dispense twenty (20). No refills. Substitution is permissible. OTC Medications: Acetaminophen (available over the counter): take according to label instructions. Follow-up: Screening today revealed the patient's blood pressure to be in the hypertensive range. The patient should follow up with a primary care provider for blood pressure management. Follow-up with: [facility], , , [facility] [address], [place] [address]; [facility], , , [address] [place] [address], ; [facility], [facility], , [address] [place] [address] Follow up in about two days. (Electronically signed by Rashid Landeros DO 08/20/2016 22:54)
--- NOTE | 2016-08-20 22:54 | ED MAR SUMMARY ---
..... Medication Administration Record [facility] [address], [place] [id number] Patient: BILLY MOTT Visit ID: [id number] 51y, M Weight: 113.3 kg Height/Length: 74 in BMI: 32.1 ALLERGIES: Ibuprofen, Penicillins
--- NOTE | 2016-08-20 22:54 | ED DISCHARGE INSTRUCTIONS ---
Patient: BILLY MOTT General Instructions [facility] VisitID: [id number] [place] [address] 51y, M Registration Date/Time: 08/20/2016 Chronic nontraumatic thoracic and lumbar back pain associated with muscle strain. Essential hypertension. INSTRUCTIONS Apply ice. (Please see the PAIN CARE PLAN - we cannot use narcotic pain medication in the ER for chronic pain or more than 3 times in 12 months - PLEASE SEE THE PAIN SPECIALIST YOUR DOCTOR HAS REFERRED YOU TO). Warnings: SEDATIVE MEDICATION: You were given sedative medication during your visit. Do not drive or operate dangerous machinery. GENERAL WARNINGS: Return or contact your physician immediately if your condition worsens or changes unexpectedly, if not improving as expected, or if other problems arise. Your Current Medications: CONTINUE TAKING THE FOLLOWING MEDICATIONS: Gabapentin Oral : 800 mg 3x a day. Tums Oral : prn. Prescription Medications: Flexeril 10 mg: Take 1 orally every 8 hours as needed for muscle spasm. Dispense twenty (20). No refills. Substitution is permissible. OTC Medications: Acetaminophen (available over the counter): take according to label instructions. Follow-up: Screening today revealed the patient's blood pressure to be in the hypertensive range. The patient should follow up with a primary care provider for blood pressure management. Follow-up with: [facility], , , [facility] [place], [place] [address]; [facility], , , [address] [place] [address], ; [facility], [facility], , [address] [place] [address] Follow up in about two days. ADDITIONAL INFORMATION Back Pain [Acute Or Chronic] Back pain is usually caused by an injury to the muscles or ligaments of the spine. Sometimes the disks that separate each bone in the spine may bulge and cause pain by pressing on a nearby nerve. Back pain may also appear after a sudden twisting/bending force (such as in a car accident), after a simple awkward movement, or lifting something heavy with poor body positioning. In either case, muscle spasm is often present and adds to the pain. Acute back pain usually gets better in one to two weeks. Back pain related to disk disease, arthritis in the spinal joints or spinal stenosis (narrowing of the spinal canal) can become chronic and last for months or years. Unless you had a physical injury (for example, a car accident or fall) X-rays are usually not ordered for the initial evaluation of back pain. If pain continues and does not respond to medical treatment, x-rays and other tests may be performed at a later time. Home Care: You may need to stay in bed the first few days. But, as soon as possible, begin sitting or walking to avoid problems with prolonged bed rest (muscle weakness, worsening back stiffness and pain, blood clots in the legs). When in bed, try to find a position of comfort. A firm mattress is best. Try lying flat on your back with pillows under your knees. You can also try lying on your side with your knees bent up towards your chest and a pillow between your knees. Avoid prolonged sitting. This puts more stress on the lower back than standing or walking. During the first two days after injury, apply an ICE PACK to the painful area for 20 minutes every 2-4 hours. This will reduce swelling and pain. HEAT (hot shower, hot bath or heating pad) works well for muscle spasm. You can start with ice, then switch to heat after two days. Some patients feel best alternating ice and heat treatments. Use the one method that feels the best to you. You may use acetaminophen (Tylenol) or ibuprofen (Motrin, Advil) to control pain, unless another pain medicine was prescribed. [NOTE: If you have chronic liver or kidney disease or ever had a stomach ulcer or GI bleeding, talk with your doctor before using these medicines.] Be aware of safe lifting methods and do not lift anything over 15 pounds until all the pain is gone. Follow Up with your doctor or this facility if your symptoms do not start to improve after one week. Physical therapy may be needed. [NOTE: If X-rays were taken, they will be reviewed by a radiologist. You will be notified of any new findings that may affect your care.] Get Prompt Medical Attention if any of the following occur: Pain becomes worse or spreads to your legs Weakness or numbness in one or both legs Loss of bowel or bladder control Numbness in the groin or genital area High Blood Pressure -- To Be Confirmed [No Tx] Your blood pressure was higher today than normal. Sometimes anxiety or pain can cause a temporary rise in blood pressure that later returns to normal. If your blood pressure is high on one measurement, this does not mean that you have hypertension (a chronic illness). However, you must have your blood pressure measured again within the next few days to find out if its still high. A normal blood pressure is 120/80 or less. The first (top) number is the "systolic" pressure. The second (bottom) number is the "diastolic" pressure. Hypertension exists when either the top number is 140 or higher, OR the bottom number is 90 or higher on repeated measurements. Blood pressure in the range of 120-140 (systolic) or 80-89 (diastolic) is considered "pre-hypertension". This means your are at risk for getting hypertension. You should have regular blood pressure checks to be sure your blood pressure is not rising. Home Care: Measure your blood pressure on 3 different days and write down the results. This can be done at your doctor's office or this facility. Some pharmacies and grocery stores offer automated blood pressure machines for your use. Follow Up: If your blood pressure is "high" (over 120/80) on 2 out of 3 days, you will need to follow up with your doctor for further evaluation and treatment. DO NOT PUT THIS OFF! Untreated high blood pressure increases the risk for heart attack, also known as acute myocardial infarction, or AMI, and stroke. It is a treatable condition. Get Prompt Medical Attention if any of the following occur: Chest pain or shortness of breath Severe headache Throbbing or rushing sound in the ears Nosebleed Sudden severe abdominal pain Extreme drowsiness, confusion or fainting Dizziness or vertigo (dizziness with spinning sensation) Weakness of an arm or leg or one side of the face Difficulty with speech or vision Cyclobenzaprine Hydrochloride Oral tablet What is this medicine? CYCLOBENZAPRINE (magno garsia) is a muscle relaxer. It is used to treat muscle pain, spasms, and stiffness. How should I use this medicine? Take this medicine by mouth with a glass of water. Follow the directions on the prescription label. If this medicine upsets your stomach, take it with food or milk. Take your medicine at regular intervals. Do not take it more often than directed. Talk to your scallop cutter regarding the use of this medicine in children. Special care may be needed. What side effects may I notice from receiving this medicine? Side effects that you should report to your doctor or health cattle care worker as soon as possible: allergic reactions like skin rash, itching or hives, swelling of the face, lips, or tongue chest pain fast heartbeat hallucinations seizures vomiting Side effects that usually do not require medical attention (report to your doctor or health cattle care worker if they continue or are bothersome): headache What may interact with this medicine? Do not take this medicine with any of the following medications: cisapride droperidol flecainide grepafloxacin halofantrine levomethadyl MAOIs like Carbex, Eldepryl, Marplan, Nardil, and Parnate nilotinib pimozide probucol sertindole This medicine may also interact with the following medications: abarelix alcohol contrast dyes dolasetron guanethidine medicines for cancer medicines for depression, anxiety, or psychotic disturbances medicines to treat an irregular heartbeat medicines used for sleep or numbness during surgery or procedure methadone octreotide ondansetron palonosetron phenothiazines like chlorpromazine, mesoridazine, prochlorperazine, thioridazine some medicines for infection like alfuzosin, chloroquine, clarithromycin, levofloxacin, mefloquine, pentamidine, troleandomycin tramadol vardenafil What if I miss a dose? If you miss a dose, take it as soon as you can. If it is almost time for your next dose, take only that dose. Do not take double or extra doses. Where should I keep my medicine? Keep out of the reach of children. Store at room temperature between 15 and 30 degrees C (59 and 86 degrees F). Keep container tightly closed. Throw away any unused medicine after the expiration date. What should I tell my health care provider before I take this medicine? They need to know if you have any of these conditions: heart disease, irregular heartbeat, or previous heart attack liver disease thyroid problem an unusual or allergic reaction to cyclobenzaprine, tricyclic antidepressants, lactose, other medicines, foods, dyes, or preservatives or trying to get breast-feeding What should I watch for while using this medicine? Check with your doctor or health cattle care worker if your condition does not improve within 1 to 3 weeks. You may get drowsy or dizzy when you first start taking the medicine or change doses. Do not drive, use machinery, or do anything that may be dangerous until you know how the medicine affects you. Stand or sit up slowly. Your mouth may get dry. Drinking water, chewing sugarless gum, or sucking on hard candy may help. Acetaminophen Oral tablet What is this medicine? ACETAMINOPHEN (a set a MELVIN ty fen) is a pain reliever. It is used to treat mild pain and fever. How should I use this medicine? Take this medicine by mouth with a glass of water. Follow the directions on the package or prescription label. Take your medicine at regular intervals. Do not take your medicine more often than directed. Talk to your scallop cutter regarding the use of this medicine in children. While this drug may be prescribed for children as young as 6 years of age for selected conditions, precautions do apply. What side effects may I notice from receiving this medicine? Side effects that you should report to your doctor or health cattle care worker as soon as possible: allergic reactions like skin rash, itching or hives, swelling of the face, lips, or tongue breathing problems fever or sore throat redness, blistering, peeling or loosening of the skin, including inside the mouth trouble passing urine or change in the amount of urine unusual bleeding or bruising unusually weak or tired yellowing of the eyes or skin Side effects that usually do not require medical attention (report to your doctor or health cattle care worker if they continue or are bothersome): headache nausea, stomach upset What may interact with this medicine? alcohol imatinib isoniazid other medicines with acetaminophen What if I miss a dose? If you miss a dose, take it as soon as you can. If it is almost time for your next dose, take only that dose. Do not take double or extra doses. Where should I keep my medicine? Keep out of reach of children. Store at room temperature between 20 and 25 degrees C (68 and 77 degrees F). Protect from moisture and heat. Throw away any unused medicine after the expiration date. What should I tell my health care provider before I take this medicine? They need to know if you have any of these conditions: if you frequently drink alcohol containing drinks liver disease an unusual or allergic reaction to acetaminophen, other medicines, foods, dyes or preservatives or trying to get breast-feeding What should I watch for while using this medicine? Tell your doctor or health cattle care worker if the pain lasts more than 10 days (5 days for children), if it gets worse, or if there is a new or different kind of pain. Also, check with your doctor if a fever lasts for more than 3 days. Do not take other medicines that contain acetaminophen with this medicine. Always read labels carefully. If you have questions, ask your doctor or pharmacist. If you take too much acetaminophen get medical help right away. Too much acetaminophen can be very dangerous and cause liver damage. Even if you do not have symptoms, it is important to get help right away. You have been given the following additional information: Back Pain (Acute Or Chronic) Hypertension, To Be Confirmed Cyclobenzaprine Hydrochloride Oral tablet Acetaminophen Oral tablet (Electronically signed by Rashid Landeros DO 08/20/2016 22:54)
--- NOTE | 2016-08-20 22:54 | ED MED RECONCILIATION SUMMARY ---
Patient: BILLY MOTT Medication Reconciliation Report [facility] VisitID: [id number] [address] [place] [address] 51y, M Registration Date/Time: 08/20/2016 Weight: 113.3 kg Height/Length: 74 in. BMI: 32.1 ALLERGIES: Ibuprofen, Penicillins The patient's Home Medications are listed below: CONTINUE TAKING THE FOLLOWING MEDICATIONS: Gabapentin Oral 800 mg, 3x a day Tums Oral The source(s) of the original Home Medication information: patient The following Medications were given to the patient in the Emergency Department: None. The following Medications were prescribed to the patient: Acetaminophen (available over the counter): take according to label instructions. -- Rashid Landeros DO Flexeril 10 mg: Take 1 orally every 8 hours as needed for muscle spasm. Dispense twenty (20). No refills. Substitution is permissible. -- Rashid Landeros DO
--- NOTE | 2016-08-20 22:54 | ED DISCHARGE INSTRUCTIONS ---
Patient: BILLY MOTT General Instructions [facility] VisitID: [id number] [place] [address] 51y, M Registration Date/Time: 08/20/2016 Chronic nontraumatic thoracic and lumbar back pain associated with muscle strain. Essential hypertension. INSTRUCTIONS Apply ice. (Please see the PAIN CARE PLAN - we cannot use narcotic pain medication in the ER for chronic pain or more than 3 times in 12 months - PLEASE SEE THE PAIN SPECIALIST YOUR DOCTOR HAS REFERRED YOU TO). Warnings: SEDATIVE MEDICATION: You were given sedative medication during your visit. Do not drive or operate dangerous machinery. GENERAL WARNINGS: Return or contact your physician immediately if your condition worsens or changes unexpectedly, if not improving as expected, or if other problems arise. Your Current Medications: CONTINUE TAKING THE FOLLOWING MEDICATIONS: Gabapentin Oral : 800 mg 3x a day. Tums Oral : prn. Prescription Medications: Flexeril 10 mg: Take 1 orally every 8 hours as needed for muscle spasm. Dispense twenty (20). No refills. Substitution is permissible. OTC Medications: Acetaminophen (available over the counter): take according to label instructions. Follow-up: Screening today revealed the patient's blood pressure to be in the hypertensive range. The patient should follow up with a primary care provider for blood pressure management. Follow-up with: [facility], , , [facility] [address], [place] [id number]; [facility], , , [address] [place] [address], ; [facility], , [address] [place] [address] Follow up in about two days. ADDITIONAL INFORMATION Back Pain [Acute Or Chronic] Back pain is usually caused by an injury to the muscles or ligaments of the spine. Sometimes the disks that separate each bone in the spine may bulge and cause pain by pressing on a nearby nerve. Back pain may also appear after a sudden twisting/bending force (such as in a car accident), after a simple awkward movement, or lifting something heavy with poor body positioning. In either case, muscle spasm is often present and adds to the pain. Acute back pain usually gets better in one to two weeks. Back pain related to disk disease, arthritis in the spinal joints or spinal stenosis (narrowing of the spinal canal) can become chronic and last for months or years. Unless you had a physical injury (for example, a car accident or fall) X-rays are usually not ordered for the initial evaluation of back pain. If pain continues and does not respond to medical treatment, x-rays and other tests may be performed at a later time. Home Care: You may need to stay in bed the first few days. But, as soon as possible, begin sitting or walking to avoid problems with prolonged bed rest (muscle weakness, worsening back stiffness and pain, blood clots in the legs). When in bed, try to find a position of comfort. A firm mattress is best. Try lying flat on your back with pillows under your knees. You can also try lying on your side with your knees bent up towards your chest and a pillow between your knees. Avoid prolonged sitting. This puts more stress on the lower back than standing or walking. During the first two days after injury, apply an ICE PACK to the painful area for 20 minutes every 2-4 hours. This will reduce swelling and pain. HEAT (hot shower, hot bath or heating pad) works well for muscle spasm. You can start with ice, then switch to heat after two days. Some patients feel best alternating ice and heat treatments. Use the one method that feels the best to you. You may use acetaminophen (Tylenol) or ibuprofen (Motrin, Advil) to control pain, unless another pain medicine was prescribed. [NOTE: If you have chronic liver or kidney disease or ever had a stomach ulcer or GI bleeding, talk with your doctor before using these medicines.] Be aware of safe lifting methods and do not lift anything over 15 pounds until all the pain is gone. Follow Up with your doctor or this facility if your symptoms do not start to improve after one week. Physical therapy may be needed. [NOTE: If X-rays were taken, they will be reviewed by a radiologist. You will be notified of any new findings that may affect your care.] Get Prompt Medical Attention if any of the following occur: Pain becomes worse or spreads to your legs Weakness or numbness in one or both legs Loss of bowel or bladder control Numbness in the groin or genital area High Blood Pressure -- To Be Confirmed [No Tx] Your blood pressure was higher today than normal. Sometimes anxiety or pain can cause a temporary rise in blood pressure that later returns to normal. If your blood pressure is high on one measurement, this does not mean that you have hypertension (a chronic illness). However, you must have your blood pressure measured again within the next few days to find out if its still high. A normal blood pressure is 120/80 or less. The first (top) number is the "systolic" pressure. The second (bottom) number is the "diastolic" pressure. Hypertension exists when either the top number is 140 or higher, OR the bottom number is 90 or higher on repeated measurements. Blood pressure in the range of 120-140 (systolic) or 80-89 (diastolic) is considered "pre-hypertension". This means your are at risk for getting hypertension. You should have regular blood pressure checks to be sure your blood pressure is not rising. Home Care: Measure your blood pressure on 3 different days and write down the results. This can be done at your doctor's office or this facility. Some pharmacies and grocery stores offer automated blood pressure machines for your use. Follow Up: If your blood pressure is "high" (over 120/80) on 2 out of 3 days, you will need to follow up with your doctor for further evaluation and treatment. DO NOT PUT THIS OFF! Untreated high blood pressure increases the risk for heart attack, also known as acute myocardial infarction, or AMI, and stroke. It is a treatable condition. Get Prompt Medical Attention if any of the following occur: Chest pain or shortness of breath Severe headache Throbbing or rushing sound in the ears Nosebleed Sudden severe abdominal pain Extreme drowsiness, confusion or fainting Dizziness or vertigo (dizziness with spinning sensation) Weakness of an arm or leg or one side of the face Difficulty with speech or vision Cyclobenzaprine Hydrochloride Oral tablet What is this medicine? CYCLOBENZAPRINE (magno garsia) is a muscle relaxer. It is used to treat muscle pain, spasms, and stiffness. How should I use this medicine? Take this medicine by mouth with a glass of water. Follow the directions on the prescription label. If this medicine upsets your stomach, take it with food or milk. Take your medicine at regular intervals. Do not take it more often than directed. Talk to your battery container finishing hand regarding the use of this medicine in children. Special care may be needed. What side effects may I notice from receiving this medicine? Side effects that you should report to your doctor or health school childcare attendant as soon as possible: allergic reactions like skin rash, itching or hives, swelling of the face, lips, or tongue chest pain fast heartbeat hallucinations seizures vomiting Side effects that usually do not require medical attention (report to your doctor or health school childcare attendant if they continue or are bothersome): headache What may interact with this medicine? Do not take this medicine with any of the following medications: cisapride droperidol flecainide grepafloxacin halofantrine levomethadyl MAOIs like Carbex, Eldepryl, Marplan, Nardil, and Parnate nilotinib pimozide probucol sertindole This medicine may also interact with the following medications: abarelix alcohol contrast dyes dolasetron guanethidine medicines for cancer medicines for depression, anxiety, or psychotic disturbances medicines to treat an irregular heartbeat medicines used for sleep or numbness during surgery or procedure methadone octreotide ondansetron palonosetron phenothiazines like chlorpromazine, mesoridazine, prochlorperazine, thioridazine some medicines for infection like alfuzosin, chloroquine, clarithromycin, levofloxacin, mefloquine, pentamidine, troleandomycin tramadol vardenafil What if I miss a dose? If you miss a dose, take it as soon as you can. If it is almost time for your next dose, take only that dose. Do not take double or extra doses. Where should I keep my medicine? Keep out of the reach of children. Store at room temperature between 15 and 30 degrees C (59 and 86 degrees F). Keep container tightly closed. Throw away any unused medicine after the expiration date. What should I tell my health care provider before I take this medicine? They need to know if you have any of these conditions: heart disease, irregular heartbeat, or previous heart attack liver disease thyroid problem an unusual or allergic reaction to cyclobenzaprine, tricyclic antidepressants, lactose, other medicines, foods, dyes, or preservatives or trying to get breast-feeding What should I watch for while using this medicine? Check with your doctor or health school childcare attendant if your condition does not improve within 1 to 3 weeks. You may get drowsy or dizzy when you first start taking the medicine or change doses. Do not drive, use machinery, or do anything that may be dangerous until you know how the medicine affects you. Stand or sit up slowly. Your mouth may get dry. Drinking water, chewing sugarless gum, or sucking on hard candy may help. Acetaminophen Oral tablet What is this medicine? ACETAMINOPHEN (a set a MELVIN ty fen) is a pain reliever. It is used to treat mild pain and fever. How should I use this medicine? Take this medicine by mouth with a glass of water. Follow the directions on the package or prescription label. Take your medicine at regular intervals. Do not take your medicine more often than directed. Talk to your battery container finishing hand regarding the use of this medicine in children. While this drug may be prescribed for children as young as 6 years of age for selected conditions, precautions do apply. What side effects may I notice from receiving this medicine? Side effects that you should report to your doctor or health school childcare attendant as soon as possible: allergic reactions like skin rash, itching or hives, swelling of the face, lips, or tongue breathing problems fever or sore throat redness, blistering, peeling or loosening of the skin, including inside the mouth trouble passing urine or change in the amount of urine unusual bleeding or bruising unusually weak or tired yellowing of the eyes or skin Side effects that usually do not require medical attention (report to your doctor or health school childcare attendant if they continue or are bothersome): headache nausea, stomach upset What may interact with this medicine? alcohol imatinib isoniazid other medicines with acetaminophen What if I miss a dose? If you miss a dose, take it as soon as you can. If it is almost time for your next dose, take only that dose. Do not take double or extra doses. Where should I keep my medicine? Keep out of reach of children. Store at room temperature between 20 and 25 degrees C (68 and 77 degrees F). Protect from moisture and heat. Throw away any unused medicine after the expiration date. What should I tell my health care provider before I take this medicine? They need to know if you have any of these conditions: if you frequently drink alcohol containing drinks liver disease an unusual or allergic reaction to acetaminophen, other medicines, foods, dyes or preservatives or trying to get breast-feeding What should I watch for while using this medicine? Tell your doctor or health school childcare attendant if the pain lasts more than 10 days (5 days for children), if it gets worse, or if there is a new or different kind of pain. Also, check with your doctor if a fever lasts for more than 3 days. Do not take other medicines that contain acetaminophen with this medicine. Always read labels carefully. If you have questions, ask your doctor or pharmacist. If you take too much acetaminophen get medical help right away. Too much acetaminophen can be very dangerous and cause liver damage. Even if you do not have symptoms, it is important to get help right away. You have been given the following additional information: Back Pain (Acute Or Chronic) Hypertension, To Be Confirmed Cyclobenzaprine Hydrochloride Oral tablet Acetaminophen Oral tablet (Electronically signed by Rashid Landeros DO 08/20/2016 22:54)
--- NOTE | 2016-08-20 22:54 | ED MED RECONCILIATION SUMMARY ---
Patient: BILLY MOTT Medication Reconciliation Report [facility] VisitID: [id number] [address] [place] [address] 51y, M Registration Date/Time: 08/20/2016 Weight: 113.3 kg Height/Length: 74 in. BMI: 32.1 ALLERGIES: Ibuprofen, Penicillins The patient's Home Medications are listed below: CONTINUE TAKING THE FOLLOWING MEDICATIONS: Gabapentin Oral 800 mg, 3x a day Tums Oral The source(s) of the original Home Medication information: patient The following Medications were given to the patient in the Emergency Department: None. The following Medications were prescribed to the patient: Acetaminophen (available over the counter): take according to label instructions. -- Rashid Landeros DO Flexeril 10 mg: Take 1 orally every 8 hours as needed for muscle spasm. Dispense twenty (20). No refills. Substitution is permissible. -- Rashid Landeros DO
--- NOTE | 2016-08-20 22:54 | ED MAR SUMMARY ---
..... Medication Administration Record [facility] [address] [place], [place] [id number] Patient: BILLY MOTT Visit ID: [id number] 51y, M Weight: 113.3 kg Height/Length: 74 in BMI: 32.1 ALLERGIES: Ibuprofen, Penicillins
== END 2016-08-20 15:45 | disposition home or self-care (01) ==
LOC: ED SRH 15:17
DX: S39.012A Strain of muscle, fascia and tendon of lower back, initial encounter (principal); S29.012A Strain of muscle and tendon of back wall of thorax, initial encounter; X50.0XXA Overexertion from strenuous movement or load, initial encounter; Y93.89 Activity, other specified; Y92.009 Unspecified place in unspecified non-institutional (private) residence as the place of occurrence of the external cause; Y99.8 Other external cause status; I10 Essential (primary) hypertension; J45.909 Unspecified asthma, uncomplicated; Z88.0 Allergy status to penicillin; Z79.899 Other long term (current) drug therapy